=== PATIENT | female | born 1990 | race Caucasian/White ===

== ENCOUNTER 2021-03-03 17:22 | Inpatient (IN) | payer OTHER ==
[~2021-03-03] VITALS: Ht 165.1 cm; Wt 56.7 kg
[2021-03-03 18:38] LABS: HEMOGLOBIN 17.2 gm/dl (12.3-15.3); RED BLOOD COUNT 5.82 M/UL (4.00-5.10); WHITE BLOOD COUNT 15.8 K/UL (4.5-11.0)
[2021-03-03 19:17] LABS: BUN/CREATININE RATIO 29 (0-10)
[2021-03-04 06:01] LABS: BUN/CREATININE RATIO 20 (0-10)
[2021-03-04 06:43] LABS: RED BLOOD COUNT 4.35 M/UL (4.00-5.10); WHITE BLOOD COUNT 16.6 K/UL (4.5-11.0)
[2021-03-04 06:44] LABS: HEMOGLOBIN 12.8 gm/dl (12.3-15.3)
[2021-03-05 15:59] LABS: HEMOGLOBIN 13.4 gm/dl (12.3-15.3); RED BLOOD COUNT 4.59 M/UL (4.00-5.10)
[2021-03-05 16:05] LABS: WHITE BLOOD COUNT 9.3 K/UL (4.5-11.0)
[2021-03-05 16:16] LABS: BUN/CREATININE RATIO 10 (0-10)
[2021-03-07] MEDS ORDERED: IBUPROFEN800 MG PO (10:52)
== END 2021-03-07 11:45 | disposition home or self-care (01) | DRG 853 ==
LOC: ER1 17:22 → MED SURG 4 21:45 → CDU 21:45 → CCU 03-04 00:58 → MED SURG 4 03-04 14:16
PROVIDERS: Physician Assistant; ADMIT Surgery
PROC: 0DTJ4ZZ Resection of Appendix, Percutaneous Endoscopic Approach (ICD-10-PCS; principal; 2021-03-03 22:50)
DX: A41.9 Sepsis, unspecified organism (principal); R65.21 Severe sepsis with septic shock; K35.80 Unspecified acute appendicitis; K56.7 Ileus, unspecified; N39.0 Urinary tract infection, site not specified; I10 Essential (primary) hypertension; R74.01 Elevation of levels of liver transaminase levels; Z20.822 Contact with and (suspected) exposure to COVID-19; B18.2 Chronic viral hepatitis C; Z79.899 Other long term (current) drug therapy
CPT/HCPCS: 36415; 80048; 80053; 80307; 81001; 83605; 83690; 84703; 85025; 85027; 87040; 87086; 96374; 96375; 99285; J0690; J1885; J2001; J2250; J2270; J2405; J2543; J2704; J2710; J3010; J3480; J7030; J7120; Q9967; U0002